=== PATIENT | female | born 1950 | race Caucasian/White ===

== ENCOUNTER 2021-10-23 13:32 | Outpatient (CLI) | payer MEDICARE, SELFPAY ==
[2021-10-23 14:22] LABS: Basophils # 0.1 10^3/uL (0.0-0.1); Basophils % 0.8 %; Eosinophils # 0.2 10^3/uL (0.0-0.8); Eosinophils % 2.7 %; Hematocrit 44.2 % (37.0-47.0); Hemoglobin 14.1 g/dL (11.5-15.3); Lymphocytes # 1.7 10^3/uL (0.8-4.8); Lymphocytes % 18.5 %; Mean Corpuscular HGB Conc 31.9 g/dL (30.0-36.0); Mean Corpuscular Hemoglobin 30.5 pg (28.0-34.0); Mean Corpuscular Volume 95.5 fl (81-99); Mean Platelet Volume 10.9 fL (7.4-10.4); Monocytes # 0.5 10^3/uL (0.2-0.9); Monocytes % 5.9 %; Neutrophils # 6.45 10^3/uL (1.8-7.7); Nucleated Red Blood Cells % 0 %; Platelet Count 310 10^3/cmm (130-400); Red Blood Count 4.63 10^6/uL (4.1-5.3); Red Cell Distribution Width 13.5 % (12.1-15.1)
[2021-10-23 14:32] LABS: Estmated Average Glucose 103; Hemoglobin A1C 5.2 % (4.0-6.0)
[2021-10-23 15:01] LABS: Alanine Aminotransferase 20 U/L (0-33); Albumin Level 3.9 g/dL (3.5-5.2); Alkaline Phosphatase 103 U/L (35-105); Aspartate Amino Transferase 21 U/L (0-32); Blood Urea Nitrogen 15 mg/dL (8-23); Calcium 9.2 mg/dL (8.5-10.5); Carbon Dioxide 27 mmol/L (22-29); Chloride 104 mmol/L (98-107); Chol HDL Ratio 3.41 mg/dL (0.0-4.40); Cholesterol 256 mg/dL (0-200); Free T4 Free Thyroxine 1.05 ng/dL (0.82-1.77); Globulin 2.6 g/dL (1.3-4.6); Glucose 121 mg/dL (65-115); HDL Cholesterol 75 mg/dL (60-100); LDL Cholesterol Calculated 148 mg/dL (50-129); LDL HDL Ratio 1.97 RATIO (0.00-3.22); Osmolality Calculated 296 mOsm/kg (285-295); Sodium 142 mmol/L (136-145); Thyroid Stimulating Hormone 0.76 uIU/mL (0.27-4.20); Total Bilirubin 0.2 mg/dL (0.15-1.2); Total Protein 6.5 g/dL (6.6-8.7); Triglycerides 166 mg/dL (0-150)
== END 2021-10-23 13:33 | disposition home or self-care (01) ==
LOC: LAB 13:53
PROVIDERS: PCP Family Medicine; Visit Provider Family Medicine
DX: E11.9 Type 2 diabetes mellitus without complications (principal); E78.5 Hyperlipidemia, unspecified; I10 Essential (primary) hypertension
CPT/HCPCS: 80053; 80061; 83036; 84439; 84443; 85025

== ENCOUNTER → 2022-03-27 14:46 | Outpatient (BNVA) | payer MEDICARE, OTHER, SELFPAY | PROVIDERS: PCP Family Medicine; Visit Provider Otolaryngology | DX: Z76.89 Persons encountering health services in other specified circumstances (principal); J32.9 Chronic sinusitis, unspecified; J30.9 Allergic rhinitis, unspecified; M15.9 Polyosteoarthritis, unspecified; E03.9 Hypothyroidism, unspecified; J30.2 Other seasonal allergic rhinitis; K21.9 Gastro-esophageal reflux disease without esophagitis; G30.0 Alzheimer's disease with early onset; F02.B0 Dementia in other diseases classified elsewhere, moderate, without behavioral disturbance, psychotic disturbance, mood disturbance, and anxiety | CPT/HCPCS: 99203 ==

== ENCOUNTER 2022-05-03 07:20 | Emergency (ER) | payer MEDICARE, OTHER, SELFPAY ==
[2022-05-03 07:21] VITALS: BP 142/76; PULSE 96; RESP 16; TEMP 36.4; O2SAT 92
--- NOTE | 2022-05-03 07:25 | ED_ITS ---
HPI - Epistaxis General: Chief complaint: Epistaxis Stated complaint: nosebleed Time Seen by Provider: 05/03/22 07:21 Source: patient and EMS Mode of arrival: EMS Limitations: no limitations History of Present Illness: Patient is a 71-year-old female who presents to ED today via EMS for evaluation of a nosebleed. Patient states nosebleed began this morning. She thinks maybe she coughed or sneezed prior to the nosebleed beginning. She has no prior history of epistaxis. She is not on anticoagulation. EMS states nosebleed had subsided upon their arrival however patient then blew her nose and it began again. Upon arrival to ED she has minimal bleeding from her R nare. She had already removed the petroleum soaked gauze placed by EMS. MD complaint: epistaxis Location: right nostril Onset (ago): hour(s) Duration: intermittent Associated symptoms: Reports no associated symptoms; Deny fever(s), headache(s) or sinus pain Treatment prior to arrival: nose pinching and stuffed nose with tissue Review of Systems Const: Denies: fever(s), chills, body aches, fatigue or malaise Eyes: Denies: change in vision or blurry vision ENMT: Reports: epistaxis; Denies: throat pain, odynophagia, ear or mastoid pain, ear discharge, change in hearing, nasal congestion, post nasal drip or sinus pain Card: Denies: chest pain Resp: Denies: dyspnea GI: Denies: abdominal pain Musc: Denies: neck pain Skin/Breast: Denies: rash Neuro: Denies: headache(s) or dizziness Physical Exam Const: COMMON NORMALS: no acute distress, average body habitus, patient oriented x3, no limitations, healthy appearing, alert and well nourished GENERAL APPEARANCE: cooperative ORIENTATION/CONSCIOUSNESS: Yes awake, Yes oriented to person, Yes oriented to place and Yes oriented to time HENMT: COMMON NORMALS: normocephalic, atraumatic and Normal external nose present HEAD & SCALP: normal to inspection, normocephalic and atraumatic FACE & SINUS: normal facial exam NOSE: Normal external nose present, Normal septum present and Epistaxis present on the right anterior source and active bleeding (minimal ) THROAT: posterior oropharynx normal Neck/C-Spine: COMMON NORMALS: full ROM and no lymphadenopathy GENERAL: Yes normal visual inspection, No anterior neck swelling and No submandibular swelling Resp: COMMON NORMALS: normal respiratory effort and clear to auscultation bilaterally AUSCULTATION: clear to auscultation bilaterally Cardio: COMMON NORMALS: regular rate and regular rhythm RATE: regular rate RHYTHM: regular rhythm Neuro: JANETTE COMA SCALE: document GCS findings Janette coma scale eye opening: Spontaneous Janette coma scale verbal response: Orientated [place] coma scale motor response: Obey commands [place] coma scale total score: 15 COMMON NORMALS: patient oriented x3, CN's II-XII intact bilaterally, moves all extremities, no focal motor deficits and no sensory deficits noted SENSORIUM/ORIENTATION: Yes alert, Yes oriented to person, Yes oriented to place and Yes oriented to time Skin: COMMON NORMALS: no rashes or lesions noted GENERAL SKIN EXAM: no rashes or lesions noted Course Reevaluation(s): Reevaluation #1: Oxymetazoline administered and nasal clamp placed. Will re-assess in 15 minutes. Time: 07:37 Reevaluation #2: Nasal clamp removed. No bleeding noted. Will monitor for another 15-20 mins to make sure bleeding does not resume. Time: 07:54 Vital Signs: Vital signs: Vital Signs Temperature 97.6 F 05/03/22 07:21 Pulse Rate 96 05/03/22 07:21 Respiratory Rate 16 05/03/22 07:21 Blood Pressure 142/76 05/03/22 07:21 Pulse Oximetry 92 05/03/22 07:21 Oxygen Delivery Me thod 05/03/22 07:21 MDM - Epistaxis Medical Decision Making Bleeding from her right nare was anterior and minimal upon arrival to the ED. Oxymetazoline administered and nasal clamp placed for approximately 15 to 20 minutes with resolution of bleeding. She was watched for an additional 45 minutes or so once clamp was removed with no bleeding. She was given instructions for home if bleeding begins again/return to ED precautions. Discharge Plan Discharge Patient Disposition: Home Clinical Impression: Acute anterior epistaxis Condition: Stable Prescriptions: No Action fluticasone propionate [Flonase Allergy Relief] 50 mcg/actuation spray,suspension 1 spray intranasal DAILY Rx Instructions: administer into each nostril amcinonide 0.1 % cream 1 applic topical DAILY aspirin 81 mg tablet,delayed release (DR/EC) 81 mg PO DAILY calcipotriene 0.005 % cream 1 applic topical BID Rx Instructions: rub in gently and completely calcium carbonate 600 mg calcium (1,500 mg) tablet 600 mg PO DAILY cetirizine 10 mg tablet 10 mg PO DAILY PRN clobetasol 0.05 % shampoo 1 applic topical DAILY diclofenac potassium 50 mg tablet 50 mg PO BID donepezil 10 mg tablet 10 mg PO DAILY escitalopram oxalate 10 mg tablet 10 mg PO DAILY hydrocortisone butyrate 0.1 % cream 1 applic topical DAILY levothyroxine 50 mcg tablet 50 mcg PO DAILY memantine 10 mg tablet 10 mg PO BID guaifenesin [Mucus Relief] 400 mg tablet 400 mg PO QID omeprazole 20 mg capsule,delayed release(DR/EC) 20 mg PO DAILY pimecrolimus 1 % cream 1 applic topical BID triamcinolone acetonide 55 mcg aerosol,spray 1 spray intranasal DAILY Rx Instructions: administer into each nostril mecobalamin (vitamin B12) 1,000 mcg tablet,chewable 1,000 mcg PO DAILY vitamin E mixed 400 unit capsule PO [id number] Tablet 1 tab PO DAILY montelukast 10 mg tablet See Rx Instructions .ROUTE .COMPLEX Qty: 28 3RF Dose Instruction: TAKE 1 TABLET BY MOUTH DAILY Rx Instructions: TAKE 1 TABLET BY MOUTH DAILY pseudoephedrine HCl [Sudafed 12 Hour] 120 mg tablet extended release 120 mg PO DAILY PRN (Reason: nasal congestion) Qty: 20 5RF Discharge Orders: Discharge ED (Routine); Ordered 05/03/22 Ordered By: Mady Pagan Referrals: Keshawn Zapata DO [Primary Care Provider] - Patient Instructions: Nosebleed (ED), Epistaxis - Adult Activity Restrictions/Additional Instructions: As we discussed please avoid anything that could restart your nasal bleeding such as coughing, sneezing, blowing your nose, placing anything inside of your nose, bending over, straining for bowel movements, etc. If bleeding starts you have been given a bottle of Oxymetazoline/Afrin. Administer two sprays to right nare toward the septum and then apply nasal clamp like we discussed for 20 mins. If you still cannot get bleeding to subside then we need to re-evaluate you in the Emergency Department. Coding Level of Care Code ED Parking Station Attendant for Johanna Navarro
[2022-05-03] MEDS: oxymetazoline 0.05% Nasal Spray 15 mL 2 SPRAY NOSTRIL-R (07:34)
== END 2022-05-03 08:52 | disposition home or self-care (01) ==
PROVIDERS: Emergency Provider Physician Assistant; PCP Family Medicine
DX: R04.0 Epistaxis (principal); Z79.82 Long term (current) use of aspirin
CPT/HCPCS: 99283

== ENCOUNTER 2022-05-08 13:49 | Outpatient (CLI) | payer MEDICARE, OTHER, SELFPAY ==
[2022-05-08 13:57] LABS: Add Urine Microscopic? NO; Charge for UA Resulting for Rev
[2022-05-08 14:13] LABS: Urine Color Light yellow (Yellow)
[2022-05-08 14:14] LABS: Bilirubin Urine Neg (Negative); Blood Urine Neg (Negative); Glucose Urine UA Norm (Normal); Ketones Urine Negative (Negative); Leukocyte Esterase Urine Negative (Negative); Nitrate Urine Negative (Negative); Protein Urine Neg (Negative); Specific Gravity, Urine 1.005 (1.005-1.030); Urine Appearance Clear (CLEAR); Urobilinogen Urine Norm (Negative); pH Urine 7 (5-7)
[2022-05-08 14:24] LABS: Basophils # 0.1 10^3/uL (0.0-0.1); Basophils % 0.9 %; Eosinophils # 0.1 10^3/uL (0.0-0.8); Eosinophils % 1.5 %; Hematocrit 37.3 % (37.0-47.0); Hemoglobin 11.9 g/dL (11.5-15.3); Lymphocytes # 1.8 10^3/uL (0.8-4.8); Lymphocytes % 27.6 %; Mean Corpuscular HGB Conc 31.9 g/dL (30.0-36.0); Mean Corpuscular Hemoglobin 30.6 pg (28.0-34.0); Mean Corpuscular Volume 95.9 fl (81-99); Mean Platelet Volume 10.6 fL (7.4-10.4); Monocytes # 0.4 10^3/uL (0.2-0.9); Monocytes % 6.8 %; Neutrophils # 4.07 10^3/uL (1.8-7.7); Nucleated Red Blood Cells % 0 %; Platelet Count 317 10^3/cmm (130-400); Red Blood Count 3.89 10^6/uL (4.1-5.3); Red Cell Distribution Width 13.8 % (12.1-15.1); White Blood Count 6.5 10^3/uL (4.0-10.0)
[2022-05-08 14:26] LABS: Alanine Aminotransferase 16 U/L (0-33); Albumin Level 3.8 g/dL (3.5-5.2); Alkaline Phosphatase 79 U/L (35-105); Anion Gap 13.9 (5-19); Aspartate Amino Transferase 18 U/L (0-32); Blood Urea Nitrogen 17 mg/dL (8-23); Calcium 8.8 mg/dL (8.5-10.5); Carbon Dioxide 26 mmol/L (22-29); Chloride 103 mmol/L (98-107); Globulin 2.3 g/dL (1.3-4.6); Glomerular Filtration Rate 99.1 mL/min (90-130); Glucose 120 mg/dL (65-115); Osmolality Calculated 291 mOsm/kg (285-295); Potassium 3.9 mmol/L (3.5-5.1); Sodium 139 mmol/L (136-145); Total Bilirubin 0.2 mg/dL (0.15-1.2); Total Protein 6.1 g/dL (6.6-8.7)
== END 2022-05-08 13:50 | disposition home or self-care (01) ==
PROVIDERS: PCP Family Medicine; Visit Provider Family Medicine
DX: N39.0 Urinary tract infection, site not specified (principal); D64.9 Anemia, unspecified; I10 Essential (primary) hypertension
CPT/HCPCS: 80053; 81003; 85025; 87086

== ENCOUNTER → 2022-05-29 12:49 | Outpatient (BNVA) | payer MEDICARE, OTHER, SELFPAY | PROVIDERS: PCP Family Medicine; Visit Provider Otolaryngology | DX: R04.0 Epistaxis (principal) | CPT/HCPCS: 99213 ==

== ENCOUNTER 2022-06-10 14:25 | Outpatient (CLI) | payer MEDICARE, OTHER, SELFPAY ==
[2022-06-10 14:30] LABS: Add Urine Microscopic? NO; Charge for UA Resulting for Rev
[2022-06-10 14:54] LABS: Bilirubin Urine Neg (Negative); Blood Urine Neg (Negative); Glucose Urine UA Norm (Normal); Ketones Urine Negative (Negative); Leukocyte Esterase Urine Negative (Negative); Nitrate Urine Negative (Negative); Protein Urine Neg (Negative); Specific Gravity, Urine 1.025 (1.005-1.030); Urine Appearance Clear (CLEAR); Urine Color Yellow (Yellow); Urobilinogen Urine Norm (Negative); pH Urine 5 (5-7)
== END 2022-06-10 14:26 | disposition home or self-care (01) ==
LOC: LAB 14:26
PROVIDERS: PCP Family Medicine; Visit Provider Family Medicine
DX: N39.0 Urinary tract infection, site not specified (principal)
CPT/HCPCS: 81003; 87086